=== PATIENT | male | born 1975 | race Caucasian/White ===

== ENCOUNTER 2017-03-06 14:39 | Emergency (ER) | payer OTHER ==
[~2017-03-06] VITALS: Ht 195.6 cm; Wt 142.9 kg
--- NOTE | 2017-03-06 15:55 | ED GENERAL ADULT ---
History of Present Illness General Chief Complaint: Lower Extremity Problems Stated Complaint: LEFT KNEE PAIN Source: patient Exam Limitations: no limitations Vital Signs & Intake/Output Vital Signs & Intake/Output Vital Signs Date Time Temp Pulse Resp B/P B/P Pulse O2 O2 Flow FiO2 Mean Ox Delivery Rate 03/06 1517 97.4 103 15 134/91 94 Room Air Room Air Allergies Coded Allergies: No Known Allergies (03/06/17) Reconcile Medications Prednisone 10 MG TABLET 6 TAB PO DAILY knee swelling take on days 1-5 of prednisone course Prednisone 10 MG TABLET 4 TAB PO ONCE knee swelling Take on day 6 of prednisone course Prednisone 10 MG TABLET 2 TAB PO ONCE knee swelling take on day 7 of prednisone course Triage Note: PT TO ED FOR L KNEE PAIN FOR A MONTH BUT TODAY PT IS NOT ABLE TO BEND IT WELL HE USUALLY CAN. PT HAS BEEN SEEN AT WALK IN CLINIC MULTIPLE TIMES AND DIAGNOSED WITH GOUT AND BURSITIS AND GIVEN MEDS BUT WITHOUT RELIEF. PT HAS BEEN TREATED WITH PREDNISONE FOR IT. PT UNABLE TO SIT IN TRIAGE DUE TO PAIN. Triage Nurses Notes Reviewed? yes HPI: 41 y/o male with h/o a-fib presenting with atraumatic left knee pain/swelling x1 month. Pt was seen at an urgent care twice, had normal knee XR's both times. First visit was treated for gout with indomethacin and no improvement. Second visit was treated for busitis with 20mg prednisone daily for 5 days. Pain is worse with knee flexion and sitting. Denies fevers. (NAFISA PEACE PA-C) Past History Travel History Traveled to [place] past 21 day No Medical History Any Pertinent Medical History? see below for history Neurological: NONE EENT: NONE Cardiovascular: AFIB Respiratory: NONE Gastrointestinal: NONE Hepatic: NONE Renal: NONE Musculoskeletal: NONE Psychiatric: NONE Endocrine: NONE Blood Disorders: NONE Cancer(s): NONE GOLD BEATER/Reproductive: NONE Tetanus Vaccine: 03/30/13 Surgical History Surgical History: non-contributory Psychosocial History What is your primary language Hebrew Tobacco Use: Quit >30 days ago ETOH Use: denies use Illicit Drug Use: denies illicit drug use Family History Hx Contributory? No (NAFISA PEACE PA-C) Review of Systems Review of Systems Constitutional: Denies: chills, fever. Respiratory: Reports: no symptoms. Cardiovascular: Reports: no symptoms. GI: Reports: no symptoms. Genitourinary: Reports: no symptoms. Musculoskeletal: Reports: joint pain (left knee), joint swelling (left knee). Denies: muscle pain. Neurological/Psychological: Reports: no symptoms. (NAFISA PEACE PA-C) Physical Exam Physical Exam General Appearance: well developed/nourished, no apparent distress, alert, awake , comfortable Head: atraumatic Respiratory: normal breath sounds, lungs clear Cardiovascular: regular rate/rhythm, normal peripheral pulses Extremities: normal inspection, normal range of motion, swelling, tenderness, no ligament instability, On exam of the left knee there is no erythema or increased warmth. There is diffuse edema with non-focal TTP. Pt has full unrestricted ROM of the left knee, although ranging causes him pain. Normal sensation, motor strength 5/5, distal pulses palpable. Core Measures ACS in differential dx? No CVA/TIA Diagnosis: No Severe Sepsis Present: No Septic Shock Present: No (NAFISA PEACE PA-C) Progress Differential Diagnoses I considered the following diagnoses in my evaluation of the patient: [Joint effusion vs busitis vs gout vs ligament strain vs fx vs dislocation] Plan of Care: Pt requesting to defer XR as he has had 2 recent neg XR's. Bedside US shows trace amount of prepatellar fluid, likely consistent with busitis. Suspect that pt had no improvement on prednisone given he was tx with low dose of 20mg. Given script for 60mg daily for 5 days, included a taper since he just finished an additional 5 day course. Zhou wrap applied to help with swelling. No concern for septic joint as there are no fevers, erythema, increased warmth, and ROM is grossly unrestricted. Instructed to f/u with PMD or ortho for re-evaluation in 2 days. Initial ED EKG: none (NATA LR,NAFISA) Departure Departure Disposition: HOME OR SELF CARE Condition: Stable Clinical Impression Primary Impression: Pain and swelling of left knee Referrals: SKYLA WEAVER MD Additional Instructions: Take 60 mg of prednisone on days one through 5. Take 40 mg of prednisone on day 6. Take 20 mg of prednisone a day 7. Keep knee wrapped in Zhou bandage to help alleviate swelling. Ice the knee 2-3 times daily to help alleviate swelling. Follow up with Dr. Weaver for reevaluation. Return to the ED for any new or worsening symptoms. Departure Forms: Customer Survey General Discharge Information Prescriptions: Current Visit Scripts Prednisone 6 TAB PO DAILY 5 Days take on days 1-5 of prednisone course Prednisone 4 TAB PO ONCE 1 Days Take on day 6 of prednisone course Prednisone 2 TAB PO ONCE 1 Days take on day 7 of prednisone course (NATA LR,NAFISA) PA/IRONWORKER APPRENTICE Co-Sign Statement Statement: ED Attending supervision documentation- [] I saw and evaluated the patient. I have also reviewed all the pertinent lab results and diagnostic results. I agree with the findings and the plan of care as documented in the PA's/IRONWORKER APPRENTICE's documentation. [X] I have reviewed the ED Record and agree with the PA's/IRONWORKER APPRENTICE's documentation. [] Additions or exceptions (if any) to the PAs/IRONWORKER APPRENTICE's note and plan are summarized below: [] (CHERY SHIRLEY,GUDELIA Leon) Critical Care Note Critical Care Note Critical Care Time: non-applicable (NATA LR,NAFISA)
[2017-03-06] MEDS ORDERED: PREDNISONE10 M2 PO ×2 (18:00)
[2017-03-06 18:10] VITALS: BP 153/83
== END 2017-03-06 18:10 ==
LOC: ERH 14:39
DX: M25.562 Pain in left knee (principal); M25.462 Effusion, left knee